=== PATIENT | female | born 1970 | race Caucasian/White ===

== ENCOUNTER 2021-12-14 19:58 | Inpatient (IN) | payer BC ==
[2021-12-14 21:15] LABS: Bilirubin Negative (Negative); Blood, Urine Trace (Negative); Clarity Turbid (Clear); Glucose, Urine (Dipstick) Normal (Negative); Ketone, Urine Negative (Negative); Leukocyte 500 Leu/uL (Negative); Nitrite Negative (Negative); Protein, Urine (Dipstick) 10 mg/dL (Neg-Trace); RBC/HPF 0-3 HPF (0-3); Specific Gravity, Urine 1.011 (1.002-1.036); Squamous Epithelial None Seen HPF (0-3); Urobilinogen Normal mg/dL (Less than 2); pH, Urine 5.5 (5.0-9.0)
[2021-12-14 21:23] LABS: Bacteria/HPF 1+ HPF (None Seen)
[2021-12-14 21:25] LABS: #Eosinphils 0.4 thou/uL (0.0-0.7); #Lymphocytes 1.6 thou/uL (1.20-3.40); #Neutrophils 3.9 thou/uL (1.40-6.50); %Basophils 0.5 % (0.0-1.0); %Eosinophils 5.4 % (0.0-10.0); %Lymphocytes 23.1 % (21.0-51.0); %Monocytes 14.2 % (0.0-10.0); %Neutrophils 56.9 % (42.0-75.0); Hemoglobin 9.3 g/dL (12.0-16.0); Mean Corpuscular HGB CONC 32.3 g/dL (32.0-36.0); Mean Corpuscular Hemoglobin 32.3 pg (27.0-31.0); Mean Corpuscular Volume 99.8 fL (78.0-98.0); Mean Platelet Volume 9.5 fL (7.4-10.4); Platelet Count 152 thou/uL (130-400); RBC Distribution Width 16.1 % (11.5-14.5); Red Blood Cell (RBC) Count 2.89 mill/uL (4.20-5.40); White Blood Cell (WBC) Count 6.8 thou/uL (4.8-10.8)
[2021-12-14 21:55] LABS: BHCG - Serum Negative (NEGATIVE); Pregs Control Background? CLEAR/WHITE (CLR/WHITE); Pregs Control Bar Appear? YES (CONTROL BAR)
[2021-12-14 21:56] LABS: ALT (SGPT) 23 U/L (8-55); AST (SGOT) 37 U/L (5-34); Albumin 2.4 g/dL (3.5-5.0); Alkaline Phosphatase 117 U/L (40-110); Anion Gap 15 mmol/L (10-20); BUN (Urea Nitrogen) 26 mg/dL (7.0-18.7); Bilirubin, Total 2.8 mg/dL (0.2-1.2); Calc. Creatinine Clearance 0 mL/min (70-130); Calcium 9.1 mg/dL (7.8-10.44); Carbon Dioxide 23 mmol/L (22-29); Chloride 96 mmol/L (98-107); Globulin 4.3 g/dL (2.4-3.5); Glucose 171 mg/dL (70-105); Potassium 3.9 mmol/L (3.5-5.1); Protein, Total 6.7 g/dL (6.0-8.3); Sodium 130 mmol/L (136-145)
[2021-12-14] MEDS ORDERED: Nitrofurantoin Macrocrystal 50 MG CAP PO SCH (22:00)
[2021-12-15] MEDS ORDERED: Ondansetron PF 4 MG/2 ML Vial IVP PRN (00:03)
[2021-12-15] MEDS ORDERED: Acetaminophen 650 MG Suppository PR PRN (00:03)
[2021-12-15] MEDS ORDERED: Ondansetron ODT 4 MG TAB PO PRN (00:03)
[2021-12-15 00:45] VITALS: BMI 50.5
[2021-12-15] MEDS ORDERED: Dextrose 5% in Water 1,000 ML IV PRN (06:04)
[2021-12-15] MEDS ORDERED: Dextrose 50% Abboject 50 ML SYRINGE SLOW IVP PRN (06:04)
[2021-12-15 06:32] LABS: #Eosinphils 0.3 thou/uL (0.0-0.7); #Lymphocytes 1.5 thou/uL (1.20-3.40); #Monocytes 0.7 thou/uL (0.11-0.59); #Neutrophils 2.8 thou/uL (1.40-6.50); %Basophils 0.5 % (0.0-1.0); %Eosinophils 5.1 % (0.0-10.0); %Lymphocytes 27.8 % (21.0-51.0); %Monocytes 13.8 % (0.0-10.0); %Neutrophils 52.8 % (42.0-75.0); Hemoglobin 8.9 g/dL (12.0-16.0); Mean Corpuscular HGB CONC 32.7 g/dL (32.0-36.0); Mean Corpuscular Hemoglobin 32.5 pg (27.0-31.0); Mean Corpuscular Volume 99.4 fL (78.0-98.0); Mean Platelet Volume 9.2 fL (7.4-10.4); Platelet Count 134 thou/uL (130-400); RBC Distribution Width 15.9 % (11.5-14.5); Red Blood Cell (RBC) Count 2.73 mill/uL (4.20-5.40); White Blood Cell (WBC) Count 5.3 thou/uL (4.8-10.8)
[2021-12-15 06:35] LABS: Anion Gap 14 mmol/L (10-20); BUN (Urea Nitrogen) 23 mg/dL (7.0-18.7); Calc. Creatinine Clearance 109 mL/min (70-130); Calcium 8.5 mg/dL (7.8-10.44); Carbon Dioxide 23 mmol/L (22-29); Chloride 99 mmol/L (98-107); Glucose 116 mg/dL (70-105); Potassium 3.5 mmol/L (3.5-5.1); Sodium 132 mmol/L (136-145)
[2021-12-15] MEDS: Enoxaparin Sodium 40 MG/0.4 ML SYRINGE SC SCH (07:59)
[2021-12-15] MEDS ORDERED: Fentanyl 100 MCG/2 ML VIAL SLOW IVP SCH (13:32)
[2021-12-15] MEDS: busPIRone HCl 10 MG TAB PO SCH ×2 (15:09→20:05)
[2021-12-15 15:40] LABS: SARS-CoV-2 PCR by NAA Not Detected (NotDetected)
[2021-12-15] MEDS: HumaLOG 300 UNITS/3 ML VIAL SC PRN (16:05)
[2021-12-15] MEDS: traMADol HCl 50 MG TAB PO PRN (18:40)
[2021-12-15] MEDS: Acetaminophen 325 MG TAB PO PRN (18:40)
[2021-12-15] MEDS: Gabapentin 400 MG CAP PO SCH (20:05)
[2021-12-15] MEDS ORDERED: Simethicone Chewable 80 MG TAB PO PRN (23:05)
[2021-12-16] MEDS: traMADol HCl 50 MG TAB PO PRN ×3 (06:41→22:49)
[2021-12-16] MEDS: Cholecalciferol 1,000 UNITS (25 MCG) TAB PO SCH (08:26)
[2021-12-16] MEDS: busPIRone HCl 10 MG TAB PO SCH ×3 (08:26→20:39)
[2021-12-16] MEDS: Loratadine 10 MG TAB PO SCH (08:26)
[2021-12-16] MEDS: Enoxaparin Sodium 40 MG/0.4 ML SYRINGE SC SCH (08:27)
[2021-12-16] MEDS: Gabapentin 400 MG CAP PO SCH ×2 (08:27→20:39)
[2021-12-16 10:01] LABS: Anion Gap 12 mmol/L (10-20); BUN (Urea Nitrogen) 21 mg/dL (7.0-18.7); Calc. Creatinine Clearance 103 mL/min (70-130); Calcium 8.6 mg/dL (7.8-10.44); Carbon Dioxide 24 mmol/L (22-29); Chloride 95 mmol/L (98-107); Glucose 185 mg/dL (70-105); Potassium 3.5 mmol/L (3.5-5.1); Sodium 127 mmol/L (136-145)
[2021-12-16] MEDS: HumaLOG 300 UNITS/3 ML VIAL SC PRN ×3 (11:50→20:50)
[2021-12-16] MEDS: Furosemide 20 MG/2 ML VIAL SLOW IVP SCH (14:55)
[2021-12-16] MEDS: Acetaminophen 325 MG TAB PO PRN ×2 (14:58→22:48)
[2021-12-16] MEDS: Lidocaine 5% Patch TD SCH (17:31)
[2021-12-17] MEDS: Transdermal Patch Removal TOP SCH (05:21)
[2021-12-17] MEDS: Furosemide 20 MG/2 ML VIAL SLOW IVP SCH ×2 (05:22→14:17)
[2021-12-17] MEDS: HumaLOG 300 UNITS/3 ML VIAL SC PRN ×4 (05:22→22:27)
[2021-12-17] MEDS: Cyanocobalamin (Vitamin B-12) 1,000 MCG TAB PO SCH (08:13)
[2021-12-17] MEDS: Acetaminophen 325 MG TAB PO PRN ×2 (08:13→22:32)
[2021-12-17] MEDS: traMADol HCl 50 MG TAB PO PRN ×2 (08:13→22:31)
[2021-12-17] MEDS: busPIRone HCl 10 MG TAB PO SCH ×3 (08:13→22:24)
[2021-12-17] MEDS: Loratadine 10 MG TAB PO SCH (08:14)
[2021-12-17] MEDS: Cholecalciferol 1,000 UNITS (25 MCG) TAB PO SCH (08:14)
[2021-12-17] MEDS: Enoxaparin Sodium 40 MG/0.4 ML SYRINGE SC SCH (08:25)
[2021-12-17] MEDS: Gabapentin 400 MG CAP PO SCH ×2 (08:25→22:23)
[2021-12-17] MEDS: Lidocaine 5% Patch TD SCH (17:58)
[2021-12-18] MEDS: Furosemide 20 MG/2 ML VIAL SLOW IVP SCH (05:18)
[2021-12-18] MEDS: HumaLOG 300 UNITS/3 ML VIAL SC PRN ×2 (05:36→11:22)
[2021-12-18] MEDS: Transdermal Patch Removal TOP SCH (05:40)
[2021-12-18 08:13] LABS: #Basophils 0.1 thou/uL (0.0-0.2); #Eosinphils 0.2 thou/uL (0.0-0.7); #Lymphocytes 1.2 thou/uL (1.20-3.40); #Monocytes 0.8 thou/uL (0.11-0.59); #Neutrophils 3.1 thou/uL (1.40-6.50); %Eosinophils 3.7 % (0.0-10.0); %Lymphocytes 22.5 % (21.0-51.0); %Monocytes 14.3 % (0.0-10.0); %Neutrophils 58.6 % (42.0-75.0); Hemoglobin 9.8 g/dL (12.0-16.0); Mean Corpuscular Volume 99.9 fL (78.0-98.0); Mean Platelet Volume 8.6 fL (7.4-10.4); Platelet Count 160 thou/uL (130-400); RBC Distribution Width 15.3 % (11.5-14.5); Red Blood Cell (RBC) Count 2.98 mill/uL (4.20-5.40); White Blood Cell (WBC) Count 5.2 thou/uL (4.8-10.8)
[2021-12-18 08:36] LABS: ALT (SGPT) 21 U/L (8-55); AST (SGOT) 34 U/L (5-34); Albumin 2.3 g/dL (3.5-5.0); Alkaline Phosphatase 115 U/L (40-110); Anion Gap 12 mmol/L (10-20); BUN (Urea Nitrogen) 17 mg/dL (7.0-18.7); Bilirubin, Total 2.6 mg/dL (0.2-1.2); Calc. Creatinine Clearance 122 mL/min (70-130); Calcium 8.4 mg/dL (7.8-10.44); Carbon Dioxide 23 mmol/L (22-29); Chloride 98 mmol/L (98-107); Globulin 4.2 g/dL (2.4-3.5); Glucose 201 mg/dL (70-105); Potassium 3.4 mmol/L (3.5-5.1); Protein, Total 6.5 g/dL (6.0-8.3); Sodium 130 mmol/L (136-145)
[2021-12-18] MEDS: Gabapentin 400 MG CAP PO SCH (08:41)
[2021-12-18] MEDS: Cholecalciferol 1,000 UNITS (25 MCG) TAB PO SCH (08:42)
[2021-12-18] MEDS: busPIRone HCl 10 MG TAB PO SCH (08:42)
[2021-12-18] MEDS: traMADol HCl 50 MG TAB PO PRN (08:42)
[2021-12-18] MEDS: Loratadine 10 MG TAB PO SCH (08:42)
[2021-12-18] MEDS: Cyanocobalamin (Vitamin B-12) 1,000 MCG TAB PO SCH (08:42)
[2021-12-18] MEDS: Enoxaparin Sodium 40 MG/0.4 ML SYRINGE SC SCH (08:43)
[2021-12-18] MEDS: Acetaminophen 325 MG TAB PO PRN (08:44)
[2021-12-18] MEDS ORDERED: Nadolol 40 MG TAB PO SCH (09:00)
[2021-12-18 09:32] VITALS: BP 118/78; TEMP 98.1
== END 2021-12-18 14:35 | disposition home or self-care (01) | DRG 689 ==
LOC: ERS 19:58 → T4-A 23:12 → OBSVTOIN 12-16 16:45
PROVIDERS: ADMIT Student in an Organized Health Care Education/Training Program; ATTEND Internal Medicine
DX: N30.00 Acute cystitis without hematuria (principal); K72.00 Acute and subacute hepatic failure without coma; Z68.43 Body mass index [BMI] 50.0-59.9, adult; E87.1 Hypo-osmolality and hyponatremia; N17.9 Acute kidney failure, unspecified; Z20.822 Contact with and (suspected) exposure to COVID-19; K74.60 Unspecified cirrhosis of liver; E11.9 Type 2 diabetes mellitus without complications; E66.01 Morbid (severe) obesity due to excess calories; D53.9 Nutritional anemia, unspecified; K72.90 Hepatic failure, unspecified without coma; E87.6 Hypokalemia; Z88.1 Allergy status to other antibiotic agents; Z79.899 Other long term (current) drug therapy; Z79.4 Long term (current) use of insulin; Z79.84 Long term (current) use of oral hypoglycemic drugs
CPT/HCPCS: 36415; 36416; 70450; 70551; 80048; 80053; 81003; 81015; 82140; 84703; 85025; 87086; 93306; J1650; J1815; J1940; J1956; J3010; U0003; U0005